=== PATIENT | male | born 1975 | race Caucasian/White ===

== ENCOUNTER 2020-06-23 22:37 | Emergency (ER) | payer MEDICAID ==
[~2020-06-23] VITALS: Ht 157.5 cm; Wt 74.5 kg
[2020-06-23] MEDS ORDERED: METF-960 PO (23:33)
[2020-06-23] MEDS ORDERED: IBUPROFEN 800 MG TABLET PO ONE (23:45)
[2020-06-24 03:00] VITALS: BP 139/80
== END 2020-06-24 04:32 | disposition home or self-care (01) ==
LOC: EMS 22:39
DX: S92.001A Unspecified fracture of right calcaneus, initial encounter for closed fracture (principal); E11.9 Type 2 diabetes mellitus without complications; F17.200 Nicotine dependence, unspecified, uncomplicated; Z79.84 Long term (current) use of oral hypoglycemic drugs; X58.XXXA Exposure to other specified factors, initial encounter; Y93.01 Activity, walking, marching and hiking; Y92.89 Other specified places as the place of occurrence of the external cause; Y99.8 Other external cause status
CPT/HCPCS: 29515; 99283; 99284